=== PATIENT | male | born 1955 | race Caucasian/White ===

== ENCOUNTER → 2017-01-31 | Outpatient (CLI) | payer OTHER | END | disposition home or self-care (01) | DX: R26.2 Difficulty in walking, not elsewhere classified (principal); M17.11 Unilateral primary osteoarthritis, right knee; M25.561 Pain in right knee; M25.661 Stiffness of right knee, not elsewhere classified; M62.81 Muscle weakness (generalized) | CPT/HCPCS: 97110 GP; 97150 GO; 97161 GP; 97165 GO ==

== ENCOUNTER 2017-02-20 05:43 | Inpatient (IN) | payer OTHER ==
[~2017-02-20] VITALS: Ht 170.2 cm; Wt 91.4 kg
[~2017-02-20 05:43] MED LIST: AMBIEN10 MG PO; ASPIR 8181 M1 PO; CALCIUM 600 +1 EAC1 PO; CELEBREX200 MG PO; FERROUS SULFAT325 MG PO; FISH OIL 1,0001 EAC7 PO; MAGNESIUM250 MG PO; MOVE FREE JOIN1 EACH PO; OMEPRAZOLE40 M1 PO; SYNTHROID175 MCG PO; VITAMIN D5000 UNI1 PO
[2017-02-20 06:09] VITALS: BP 121/72
[2017-02-20 10:30] LABS: HEMATOCRIT 39.7 % (38.0-50.0); MCHC 36.3 G/DL (30.0-36.0); MCV 90.8 FL (86-99); MEAN PLAT.VOLUME 10.2 uM^3 (9.0-12.4); PLATELET COUNT 186 K/uL (156-360); RBC DIS.WIDTH-CV 12.1 % (11.8-14.6); RBC DIS.WIDTH-SD 39.9 % (39-53); RED BLOOD COUNT 4.37 M/uL (4.00-5.50); WHITE BLOOD COUNT 5.1 K/uL (4.1-10.2)
[2017-02-20 10:37] LABS: POINT-OF-CARE METER ID UU13113712
[2017-02-20 10:43] VITALS: BP 130/75
[2017-02-20 11:19] LABS: ANION GAP 8 MEQ/L (2-14); CHLORIDE 108 MEQ/L (99-109); GFR ESTIMATE (CALCULATED) > 59 mL/min/; GLUCOSE 123 mg/dL (70-99); MAGNESIUM 1.8 mg/dl (1.3-2.7); POTASSIUM 4.4 MEQ/L (3.7-5.4); SAMPLE HEMOLYSIS CHECK 0; SAMPLE ICTERIC CHECK 0; SAMPLE LIPEMIA CHECK 0; SODIUM 140 MEQ/L (136-147); UREA NITROGEN (BUN) 23 mg/dL (9-23)
[2017-02-20 11:20] LABS: TROP-I INTERPRETATION NEGATIVE; TROPONIN-I < 0.01 ng/mL (0.0-0.30)
[2017-02-20 11:51] VITALS: BP 148/73
[2017-02-20 15:53] VITALS: BP 144/81
[2017-02-20 17:26] LABS: TROP-I INTERPRETATION NEGATIVE; TROPONIN-I < 0.01 ng/mL (0.0-0.30)
[2017-02-20 19:32] VITALS: BP 146/67
[2017-02-20 23:23] LABS: TROP-I INTERPRETATION NEGATIVE; TROPONIN-I < 0.01 ng/mL (0.0-0.30)
[2017-02-20 23:24] VITALS: BP 156/71
[2017-02-21 03:31] VITALS: BP 144/78
[2017-02-21 06:25] LABS: HEMATOCRIT 42.5 % (38.0-50.0); MCV 88.7 FL (86-99)
[2017-02-21 06:47] LABS: ANION GAP 7 MEQ/L (2-14); CHLORIDE 99 MEQ/L (99-109); GFR ESTIMATE (CALCULATED) > 59 mL/min/; GLUCOSE 137 mg/dL (70-99); POTASSIUM 4.1 MEQ/L (3.7-5.4); SAMPLE HEMOLYSIS CHECK 0; SAMPLE ICTERIC CHECK 0; SAMPLE LIPEMIA CHECK 0; SODIUM 136 MEQ/L (136-147); UREA NITROGEN (BUN) 11 mg/dL (9-23)
[2017-02-21 07:41] VITALS: BP 133/81
[2017-02-21 11:42] VITALS: BP 138/78
[2017-02-21 16:07] VITALS: BP 122/78
[2017-02-21 20:17] VITALS: BP 122/75
[2017-02-21 23:40] VITALS: BP 132/81
[2017-02-22 04:31] VITALS: BP 118/64
[2017-02-22 06:27] LABS: HEMATOCRIT 37.4 % (38.0-50.0); MCV 89.7 FL (86-99)
[2017-02-22 06:45] LABS: ANION GAP 9 MEQ/L (2-14); CHLORIDE 99 MEQ/L (99-109); GFR ESTIMATE (CALCULATED) > 59 mL/min/; GLUCOSE 132 mg/dL (70-99); SAMPLE HEMOLYSIS CHECK 0; SAMPLE ICTERIC CHECK 0; SAMPLE LIPEMIA CHECK 0; SODIUM 136 MEQ/L (136-147); UREA NITROGEN (BUN) 12 mg/dL (9-23)
[2017-02-22 08:08] VITALS: BP 128/76
[2017-02-22 12:19] VITALS: BP 122/79
[2017-02-22 16:31] VITALS: BP 122/64
[2017-02-22 20:06] VITALS: BP 139/69
[2017-02-23 00:09] VITALS: BP 122/69
[2017-02-23 04:23] VITALS: BP 121/68
[2017-02-23 08:10] VITALS: BP 115/66
[2017-02-23] MEDS ORDERED: OXYCONTIN10 MG PO (08:43)
[2017-02-23] MEDS ORDERED: LOVENOX40 MG/0.4 SC (08:43)
[2017-02-23] MEDS ORDERED: ENDOCET 5-3251 EACH PO (08:43)
[2017-02-23] MEDS ORDERED: SENNA PLUS TAB1 EACH PO (08:43)
== END 2017-02-23 11:27 | DRG 470 ==
LOC: 2SOUTH 05:43 → 3WEST 10:14 → 3EAST 10:56 → 2SOUTH 13:06 → 3EAST 02-23 11:27
PROVIDERS: Hospitalist; Orthopaedic Surgery; Physician Assistant
PROC: 0SRC0J9 Replacement of Right Knee Joint with Synthetic Substitute, Cemented, Open Approach (ICD-10-PCS; principal; 2017-02-20)
DX: M17.11 Unilateral primary osteoarthritis, right knee (principal); K21.9 Gastro-esophageal reflux disease without esophagitis; E03.9 Hypothyroidism, unspecified; E66.9 Obesity, unspecified; Z68.31 Body mass index [BMI] 31.0-31.9, adult; R55 Syncope and collapse; R00.1 Bradycardia, unspecified; R00.0 Tachycardia, unspecified; R06.00 Dyspnea, unspecified
CPT/HCPCS: 71010; 73560; 80048; 82948; 83735; 84484; 85014; 85018; 85027; 93005; 93306; 93971; 94799; C1713; J0131; J0690; J1170; J1650; J2250; J7050